=== PATIENT | female | born 1990 | race Caucasian/White ===

== ENCOUNTER 2021-02-14 11:11 | Inpatient (IN) ==
[2021-02-14] MEDS ORDERED: PENICILLIN G POTASSIUM 6 MU in DEXTROSE 5% 250 ML IV STA (12:14)
[2021-02-14] MEDS ORDERED: OXYTOCIN 30 UNITS/500 ML BAG IV PRN ×3 (12:14→21:35)
--- NOTE | 2021-02-14 12:18 | History & Physical Report ---
Date of Service February 14, 2021 Assessment & Plan (1) Encounter for elective induction of labor: (2) Group B streptococcal infection during : (3) Obesity affecting : Plan: Admit, iv, labs. will plan lfts given initial bp. fhts categ 1. tried to arom, ? done. will start pitocin and see if has leaking. pt desires to proceed with induction. declines elective c/s. would want epidural when able, ok to have whenever she is ready. Admission and Anticipated Discharge Date Admission Date: February 14, 2021 History of Present Illness Chief Complaint: planned induction Primary Care Provider: NO PCP 30yo at 40+wks ega with cc of wanting elective induction of labor. She requests this induction due to last delivery long labor with OP presentation and facial bruising and broken nose. She is aware outcome may not be different as far as presentation and consequences of such but she desires attempt at vaginal delivery with this induction. She had montano ripening balloon placed last pm and it fell out. She denies ctx, rom, vb. +FM. PNC c/b 1. GBS pos 2. obesity, aga on 32wk efw 3. family history of malignant hyperthermia, had anesth consult. 4. X linked icthyosis PNL rhpos, ri, gbs pos OBH: x 1, was OP and had bruised face/broken nose GYNH: nl paps no stds. Allergies Allergy/AdvReac Type Severity Reaction Status Date / Time No Known Allergies Allergy Verified 02/11/21 11:26 Home Medications Medication Instructions Recorded Confirmed Type prenat.vits,demetria,xke-givw-rprgl 1 tab PO DAILY 06/29/20 02/14/21 History Patient History Medical History (Updated 02/14/21 @ 12:31 by Samantha Palacios MD, FACOG) Family history of malignant hyperthermia Documented in father's cousin/father Surgical History History of myringoplasty S/P tonsillectomy and adenoidectomy S/P wisdom tooth extraction Family History Aunt Breast cancer Uterine cancer Mother Endometrial cancer Social History Smoking Status: Never smoker Hx Alcohol Use: No Hx Substance Use: No marital status: marital status details: Garrett (30) [phone] Current Living Situation: Spouse Current Living Situation Comment: lives with spouse, son, 2 cats, spouse to change litter. current occupational status: unemployed Feels Safe at Home: Yes Review of Systems as per Subjective / HPI Physical Exam Constitutional: WD/WN, vitals as above Respiratory: normal respiratory effort, lungs clear to auscultation Cardiovascular: Rate/Rhythm: regular rate and regular rhythm Gastrointestinal (Abdomen): soft gravid nt efw 7-8# Musculoskeletal: no edema nontender calves Neurologic: grossly normal Psychiatric: A+Ox3, euthymic affect Genitourinary: Manual OB Exam: + cervical dilation 3 cm, + cervical effacement (75%), + station (mid, soft. ) -2 and + amniotic fluid (attempted arom, ? succ essful ) OB Exam Monitor Tracing: + external FHT monitor used, + external uterine monitor used, + category I and + normal FHT variability Results & Data ([facility]) Vital Signs (Past 12 Hours) Vital Signs Pulse BP 02/14/21 12:12 121 H 153/82 H Code Status & VTE Plan VTE Prophylaxis Plan VTE Prophylaxis will be ordered: No Coding Level of Care Code None Diagnoses Encounter for elective induction of labor Z34.90 Group B streptococcal infection during O98.819; B95.1 Obesity affecting O99.210
[2021-02-14 12:56] LABS: Hematocrit (blood only) 37.3 % (37-47); Hemoglobin 12.1 g/dL (12.0-16.0); Mean Corpuscular Hgb Conc 32.4 g/dL (32-36); Mean Corpuscular Volume 92.6 fL (80-100); Mean Platelet Volume 11.3 fL (7.4-10.4); Platelet Count 194 K/uL (130-400); RDW Standard Deviation 47.2 fL (36.4-46.3); Red Blood Count 4.03 M/uL (4.2-5.4); White Blood Count 13.15 K/uL (4.8-10.8)
[2021-02-14] MEDS: LACTATED RINGER'S 1,000 ML IV PRN ×3 (13:13→18:53)
[2021-02-14 13:19] LABS: Alanine Aminotransferase 13 U/L (12-78); Albumin Level 2.6 gm/dl (3.4-5.0); Alkaline Phosphatase 158 U/L (45-117); Aspartate Aminotransferase 6 U/L (15-37); Bilirubin Direct < 0.1 mg/dl (0-0.2); Bilirubin,Total 0.2 mg/dl (0.2-1); Total Protein 6.3 gm/dl (6.4-8.2)
[2021-02-14] MEDS ORDERED: BUPIVACAINE 0.25% 30 ML VIAL ONE (15:11)
[2021-02-14] MEDS ORDERED: SODIUM CHLORIDE 0.9% INJ 10 ML VIAL ONE (15:11)
[2021-02-14] MEDS ORDERED: ePHEDrine sulfate 50 MG/ML AMP ONE (15:11)
[2021-02-14] MEDS ORDERED: fentaNYL citrate 100 MCG/2 ML VIAL ONE (15:11)
[2021-02-14] MEDS ORDERED: fentaNYL 2MCG/ML ROPIVACAINE 1.25MG/ML 100 ML BAG EPI ONE (15:12)
[2021-02-14] MEDS ORDERED: PENICILLIN G POTASSIUM 3 MU in DEXTROSE 5% 100 ML IV PRN (15:14)
--- NOTE | 2021-02-14 15:34 | Anesthesiology Consultation ---
Date of Service February 14, 2021 Assessment & Plan Chart Review Chart Review: Acceptable Risk for Surgery, Patient NOT seen in Pre Admission Testing and Acceptable Risk for Labor Epidural Consults Requested none ASA ASA3 Proposed Anesthesia Anesthesia Type: Labor Epidural and CSE History Height/Weight Height: 5 ft 5 in Weight: 118.841 kg Allergies Allergy/AdvReac Type Severity Reaction Status Date / Time No Known Allergies Allergy Verified 02/11/21 11:26 Medications Home Medications Medication Instructions Recorded Confirmed Last Taken prenat.vits,demetria,zuj-ssss-ozycx 1 tab PO DAILY 06/29/20 02/14/21 02/14/21 08:00 Active Medications Generic Name Dose Route Start Last Admin Trade Name Freq PRN Reason Stop Dose Admin Oxytocin 30 units in 500 mls @ 5 mls/hr 02/14/21 12:14 02/14/21 14:26 Pitocin IV 02/16/21 12:13 0.3 units/hr .Q24H PRN 5 mls/hr Labor Induction/Augmentation Titration Protocol 0.3 UNITS/HR Lactated Ringer's 1,000 mls @ 125 mls/hr 02/14/21 12:14 02/14/21 15:07 Lr IV 02/16/21 12:13 999 mls/hr .Q8H PRN Infusion L&D Protocol Protocol Past Medical History Medical History Family history of malignant hyperthermia Documented in father's cousin/father Exercise / Class Metabolic Activity II 4-5 Yardwork/Stairs/Walk up hill Past Family History Family History Aunt Breast cancer Uterine cancer Mother Endometrial cancer Past Surgical History Surgical History History of myringoplasty S/P tonsillectomy and adenoidectomy S/P wisdom tooth extraction Past Anesthesia History No Hx of Anesthesia Complications, Malignant Hyperthermia (family hx) and No Family Hx of Anesthesia Complications (family hx/o mh) History of PONV No Hx of PONV and No Hx of Motion Sickness Social History Smoking Status: Never smoker Do You Dip or Chew Tobacco: No Hx Alcohol Use: No Hx Substance Use: No Physical Exam Vital Signs Last Vital Signs Temp 37.3 C 02/14/21 15:06 Pulse 93 H 02/14/21 15:28 Resp 18 02/14/21 15:06 BP 118/72 02/14/21 14:19 Pulse Ox 98 02/14/21 15:28 Testing Laboratory Results 02/14/21 12:35 Blood Type A Positive 02/14/21 12:35 Antibody Screen NEGATIVE 02/14/21 12:35
[2021-02-14] MEDS ORDERED: NALOXONE HCL 1 MG in SODIUM CHLORIDE 0.9% 1000ML 1,000 ML IV PRN (16:18)
[2021-02-14] MEDS ORDERED: ONDANSETRON INJ 2 MG/ML 2 ML VIAL IV PRN (16:18)
[2021-02-14] MEDS ORDERED: diphenhydrAMINE 50 MG/ML VIAL IV PRN (16:18)
[2021-02-14] MEDS ORDERED: ePHEDrine sulfate 50 MG/ML AMP IV PRN (16:18)
[2021-02-14] MEDS ORDERED: PROMETHAZINE HCL 25 MG in SODIUM CHLORIDE 0.9% 50 ML IV PRN (16:18)
[2021-02-14] MEDS ORDERED: NALOXONE HCL 0.4 MG/1 ML VIAL/CARP IV PRN (16:18)
[2021-02-14] MEDS ORDERED: NALBUPHINE HCL INJ 10 MG/ML AMP IV PRN (16:18)
[2021-02-14] MEDS ORDERED: fentaNYL 2MCG/ML ROPIVACAINE 1.25MG/ML 100 ML BAG EPI PRN (16:18)
--- NOTE | 2021-02-14 17:14 | Labor Progress Brief Note ---
Date of Service February 14, 2021 Subjective comfortable with epidural Assessment & Plan (1) Encounter for elective induction of labor: (2) Group B streptococcal infection during : (3) Obesity affecting : Plan: given decel we did turn off pit. fhts categ 2, now with recovery seems more like early decels, will see if can restart pit at 1/2 if fhts categ 1. exam very different in ctx. suspect may progress quickly with labor pattern. pcn for gbs. Admission and Anticipated Discharge Date Admission Date: February 14, 2021 Physical Exam Constitutional: WD/WN, vitals as above Genitourinary: Manual OB Exam: + cervical dilation 4 cm, + cervical effacement 80% and + station -2 OB Exam Monitor Tracing: + external FHT monitor used, + scalp electrode used (placed after pt turned and exam 5cm/100 with ctx), + external uterine monitor used (q2, pit at 7), + category II and + variable decelerations Results & Data ([facility]) Vital Signs (Past 12 Hours) Vital Signs Temp Pulse Resp BP Pulse Ox 02/14/21 17:08 90 146/81 H 100 02/14/21 17:03 96 H 100 02/14/21 16:58 83 100 02/14/21 16:53 88 100 02/14/21 16:51 99.0 F 02/14/21 16:50 88 18 149/73 H 02/14/21 16:48 83 100 02/14/21 16:45 83 18 139/63 02/14/21 16:43 78 100 02/14/21 16:40 88 18 144/67 H 02/14/21 16:38 77 100 02/14/21 16:35 81 18 139/64 02/14/21 16:33 86 100 02/14/21 16:30 18 02/14/21 16:29 89 137/63 02/14/21 16:28 90 100 02/14/21 16:27 117 H 119/88 02/14/21 16:25 104 H 121/68 02/14/21 16:23 105 H 138/65 100 02/14/21 16:21 94 H 110/53 L 02/14/21 16:20 18 02/14/21 16:19 94 H 104/52 L 02/14/21 16:18 97 H 100 02/14/21 16:17 95 H 114/55 L 02/14/21 16:15 95 H 111/69 02/14/21 16:13 108 H 153/80 H 99 02/14/21 16:11 81 153/78 H 02/14/21 16:09 104 H 149/90 H 02/14/21 16:08 105 H 100 02/14/21 16:03 113 H 99 02/14/21 15:58 106 H 98 02/14/21 15:53 100 H 99 02/14/21 15:48 81 100 02/14/21 15:43 94 H 98 02/14/21 15:38 104 H 100 02/14/21 15:33 96 H 100 02/14/21 15:28 93 H 98 02/14/21 15:06 99.1 F 18 02/14/21 14:19 98 H 118/72 02/14/21 13:19 98.2 F 97 H 18 117/75 02/14/21 12:27 98.4 F 111 H 16 137/73 02/14/21 12:12 121 H 153/82 H Coding Level of Care Code None Diagnoses Encounter for elective induction of labor Z34.90 Group B streptococcal infection during O98.819; B95.1 Obesity affecting O99.210
[2021-02-14] MEDS ORDERED: miSOPROStoL 200 MCG TAB ONE (19:52)
--- NOTE | 2021-02-14 20:27 | Delivery Summary ---
Vaginal Delivery Summary Date of Service February 14, 2021 Vaginal Delivery Summary The patient dilated to complete and pushed to deliver a viable male infant Apgars 8 and 9 via over intact perineum. Mouth and nose bulb suctioned at perineum. Shoulders and body delivered with ease. Infant was vigorous and crying at . Cord clamped at 30 seconds of life and to maternal abdomen where the cord was then doubly clamped and cut. Placenta delivered spontaneously and intact, three-vessel cord. Hemostasis not achieved with dilute pitocin and uterine massage and drainage of the bladder for approximately 50 cc under sterile conditions. 800mcg rectal cytotec placed and hemostasis improved. Laceration of vagina extending to right labia, repaired with 3-0 vicryl. Cervix and sulci intact. EBL 500 cc. Mother and baby stable recovery. [facility] Vaginal Delivery Charge Vaginal Delivery Codes: 13890 global code for the antepartum, delivery, and post- Delivery Type Details:
[2021-02-14] MEDS ORDERED: miSOPROStoL 200 MCG TAB PR ONE (21:35)
[2021-02-14] MEDS ORDERED: OXYTOCIN 20 UNITS in LACTATED RINGER'S 1,000 ML IV SCH (21:35)
[2021-02-14] MEDS ORDERED: SUPERCREAM 0.870% 15 GM JAR EXT PRN (21:35)
[2021-02-14] MEDS ORDERED: oxyCODONE/ACETAMINOPHEN 5mg/325mg TAB PO PRN (21:35)
[2021-02-14] MEDS ORDERED: BENZOCAINE 20% AER SPR 82.5 GM CAN EXT PRN (21:35)
[2021-02-14] MEDS ORDERED: HYDROCORTISONE ACETATE 25 MG SUPP PR PRN (21:35)
[2021-02-14] MEDS ORDERED: ACETAMINOPHEN 325 MG TAB PO PRN (21:35)
[2021-02-14] MEDS ORDERED: DIPHTHERIA/TETANUS/PERTUSSIS 0.5 ML SYR/VIAL IM ONE (21:35)
--- NOTE | 2021-02-14 21:38 | Anesthesia Procedure Note ---
Date of Service February 14, 2021 Anesthesia Post Epidural Note Vital Signs Vital Signs: Temp Pulse Resp BP Pulse Ox 38 C H 102 H 16 146/67 H 99 02/14/21 21:05 02/14/21 21:23 02/14/21 21:05 02/14/21 21:23 02/14/21 20:03 Pain Intensity Bilateral Abdomen: Pain Intensity: 4 Bilateral Perineal: Pain Intensity: 4 Notes Mental Status: alert / awake / arousable Nausea / Vomiting: adequately controlled Pain: adequately controlled Airway Patency, RR, SpO2: stable & adequate BP & HR: stable & adequate Hydration State: stable & adequate Neuraxial Anesthesia: was administered and sensory block is resolving Anesthetic Complications: no major complications apparent Epidural: Removed without complications and With tip intact
[2021-02-14] MEDS: IBUPROFEN 600 MG TAB PO PRN (21:49)
[2021-02-14] MEDS: DOCUSATE SODIUM 100 MG CAP PO SCH (21:49)
[2021-02-15] MEDS: IBUPROFEN 600 MG TAB PO PRN ×3 (05:07→19:28)
[2021-02-15 06:08] LABS: Hematocrit (blood only) 32.9 % (37-47); Hemoglobin 10.8 g/dL (12.0-16.0)
--- NOTE | 2021-02-15 06:44 | Obstetrical Progress Note ---
Date of Service <Lakeisha Yates MD - Last Filed: 02/15/21 07:35> February 15, 2021 Assessment & Plan <Lakeisha Yates MD - Last Filed: 02/15/21 07:35> (1) Encounter for care and examination after delivery: PPD 1: stable, routine management * pt voiding and ambulating w/o difficulty * pain well controlled on analgesia * tolerating regular diet * breast-feeding * reassess d/c readiness later in the day <Samantha Palacios MD, FACOG - Last Filed: 02/15/21 08:06> (1) Encounter for care and examination after delivery: Resident Physician Supervision Note: I interviewed and examined the patient. Discussed with Dr. Yates and agree with findings and plan as documented in the note. Any exceptions or clarifications are listed here: pt doing well, eating, voiding, ambulating without problem, no pain issues. . hgb noted this am. exam, cor rrr, lungs ctab, abd soft ff2 down nt, ext nt calves. ppd#1, s/p , gbs pos but did get treatment. routine care, instructions reviewed as may consider d/c later today. pt will d/w peds. Documented By: Samantha Palacios MD, FACOG Subjective <Lakeisha Yates MD - Last Filed: 02/15/21 07:35> Kera is a 30-year-old who is now PPD 1 following spontaneous vaginal delivery at 40+ weeks. Reports feeling well overall this morning. Some abdominal cramping & 2/10 pain well managed on analgesics. Voiding +. Tolerating meals well and able to ambulate some. + Passing gas but no bowel movements. Some persistent lochia (4 pads changed) with some improvement this morning. . Review of Systems Denies fever, chills, sweats Denies shortness of breath, difficulty breathing, chest pain, palpitations, chest pressure. Denies breast pain. Denies dysuria. Denies headache or changes in vision Physical Exam <Lakeisha Yates MD - Last Filed: 02/15/21 07:35> General: Alert, oriented. No acute distress. Cardiac: Regular rate and rhythm, no murmurs/rubs/gallops. Respiratory: Clear to auscultation bilaterally a/p, no wheezes/rales/rhonchi. No increased work of breathing. Symmetrical chest rise. No respiratory distress. Abdomen: Soft, nontender, nondistended. Bowel sounds present. Uterus: Uterine fundus firm, palpable 3 cm below umbilicus. Lower Extremities: No lower extremity edema or swelling. No deep calf pain. Renata's negative bilaterally.. Results & Data ([facility]) <Lakeisha Yates MD - Last Filed: 02/15/21 07:35> Vital Signs (Past 12 Hours) Vital Signs Temp Pulse Pulse Resp BP BP Pulse Ox 02/15/21 04:30 36.9 C 87 16 136/83 98 02/14/21 23:00 36.8 C 95 H 17 134/87 95 02/14/21 22:24 113 H 153/105 H 02/14/21 22:05 36.9 C 02/14/21 21:53 109 H 122/62 02/14/21 21:38 102 H 140/69 02/14/21 21:23 102 H 146/67 H 02/14/21 21:08 103 H 148/75 H 02/14/21 21:05 38 C H 16 02/14/21 20:53 109 H 136/79 02/14/21 20:40 106 H 128/73 02/14/21 20:23 103 H 157/70 H 02/14/21 20:08 108 H 149/71 H 02/14/21 20:05 20 02/14/21 20:03 105 H 99 02/14/21 19:58 107 H 99 02/14/21 19:53 112 H 151/71 H 99 02/14/21 19:48 121 H 98 02/14/21 19:43 124 H 97 02/14/21 19:38 113 H 153/93 H 100 02/14/21 19:33 104 H 99 02/14/21 19:30 22 02/14/21 19:28 105 H 100 02/14/21 19:24 104 H 145/85 H 02/14/21 19:23 103 H 98 02/14/21 19:18 116 H 151/71 H 100 02/14/21 19:13 111 H 99 02/14/21 19:10 20 02/14/21 19:09 104 H 170/93 H 02/14/21 19:08 97 H 99 02/14/21 19:03 109 H 100 02/14/21 19:02 37.1 C 20 02/14/21 19:00 18 02/14/21 18:58 116 H 100 02/14/21 18:54 103 H 134/69 02/14/21 18:53 105 H 100 02/14/21 18:48 94 H 100 02/14/21 18:45 18 02/14/21 18:43 95 H 99 Resident Activity Tracking <Lakeisha Yates MD - Last Filed: 02/15/21 07:35> Resident Involvement: Resident Care Provided Care Provided: OB Delivery
[2021-02-15] MEDS: PRENATAL VITAMIN 1 TAB PO SCH (08:32)
[2021-02-15] MEDS: DOCUSATE SODIUM 100 MG CAP PO SCH ×2 (08:32→20:46)
--- NOTE | 2021-02-16 06:57 | Obstetrical Progress Note ---
Date of Service <Lakeisha Yates MD - Last Filed: 02/16/21 07:54> February 16, 2021 Assessment & Plan <Lakeisha Yates MD - Last Filed: 02/16/21 07:54> (1) Encounter for care and examination after delivery: PPD 2: stable, routine management * pt voiding and ambulating w/o difficulty * pain well controlled on analgesia * tolerating regular diet * breast-feeding * anticipate d/c today * 6-week OB outpatient follow-up <Nu Hopkins MD, FACOG - Last Filed: 02/16/21 08:42> (1) Encounter for care and examination after delivery: Subjective <Lakeisha Yates MD - Last Filed: 02/16/21 07:54> Kera is a 30-year-old female who is now PPD 2 following spontaneous vaginal delivery at 40+ weeks. Reports feeling well overall this morning. Minimal abdominal cramping & 2/10 pain well managed on analgesics. Voiding +. Tolerating meals well and able to ambulate without difficulty. + Passing gas but no bowel movements. Some persistent lochia with improvement this morning. . Review of Systems Denies fever, chills, sweats Denies shortness of breath, difficulty breathing, chest pain, palpitations, chest pressure. Denies breast pain. Denies dysuria. Denies headache or changes in vision Physical Exam <Lakeisha Yates MD - Last Filed: 02/16/21 07:54> General: Alert, oriented. No acute distress. Cardiac: Regular rate and rhythm, no murmurs/rubs/gallops. Respiratory: Clear to auscultation bilaterally a/p, no wheezes/rales/rhonchi. No increased work of breathing. Symmetrical chest rise. No respiratory distress. Abdomen: Soft, nontender, nondistended. Bowel sounds present. Uterus: Uterine fundus firm, palpable 1 cm below umbilicus. Lower Extremities: No lower extremity edema or swelling. No deep calf pain. Renata's negative bilaterally.. Results & Data ([facility]) <Lakeisha Yates MD - Last Filed: 02/16/21 07:54> Vital Signs (Past 12 Hours) Vital Signs Temp Pulse Resp BP 02/15/21 23:30 36.8 C 80 18 105/75 02/15/21 19:15 36.8 C 99 H 18 116/79 <Nu Hopkins MD, FACOG - Last Filed: 02/16/21 08:42> Co-Signing Physician Notes Resident Physician Supervision Note: I interviewed and examined the patient. Discussed with Dr. Yates and agree with findings and plan as documented in the note. Any exceptions or clarifications are listed here: [None] Documented By: Nu Hopkins MD, FACOG Resident Activity Tracking <Lakeisha Yates MD - Last Filed: 02/16/21 07:54> Resident Involvement: Resident Care Provided Care Provided: OB Delivery
[2021-02-16] MEDS: IBUPROFEN 600 MG TAB PO PRN (08:48)
[2021-02-16] MEDS: DOCUSATE SODIUM 100 MG CAP PO SCH (08:50)
[2021-02-16] MEDS: PRENATAL VITAMIN 1 TAB PO SCH (08:51)
== END 2021-02-16 12:45 | disposition home or self-care (01) | DRG 807 ==
LOC: 4S1 11:56 → 4S2 22:55